=== PATIENT | male | born 1975 ===

== ENCOUNTER 2022-10-23 08:33 | Inpatient (IN) | payer BC ==
[~2022-10-23] VITALS: Ht 182.9 cm; Wt 163.8 kg
[2022-10-23] VITALS (13 sets, daily range): BP systolic 161–200; BP diastolic 90–130
--- NOTE | 2022-10-23 11:26 | NUR ---
PT ARRIVED VIA GURNEY FROM [place]. PT DENIES PAIN. FOOT IS RED WITH WOUND CLEARLY VISIBLE. PT AMBULATORY IN ROOM. HE DENIES ANY HISTORY OF NEUROPATHY BUT IS UNABLE TO FEEL THE WOUND ON FOOT. HE DENIES ANY SHORTNESS OF BREATH. NO CHEST PAIN. BP IN THE 220'S DURING TRANSPORT PER REPORT. 170/116 ON ARRIVAL, PT STATES HE HAS HYPERTENSION BUT DOES NOT TAKE ANYTHING FOR IT. "AVOIDS DOCTORS" IF HE CAN. STATES HE HAS NOT EATEN OR DRANK ANYTHING SINCE YESTERDAY. AGREEABLE TO BE NPO FOR PROCEDURE. SCREENED FOR IGNITION RISK, NO RISK FOUND. EDUCATED ON NO SMOKING IN HOSPITAL.
[2022-10-23 12:53] LABS: BASOPHILS ABSOLUTE AUTO 0.06 K/mm3 (0.00-0.23); BASOPHILS PERCENT AUTO 1 % (0-2); EOSINOPHILS ABSOLUTE AUTO 0.28 K/mm3 (0.00-0.68); EOSINOPHILS PERCENT AUTO 4 % (0-6); Hematocrit 43.4 % (37.0-53.0); Hemoglobin 14.6 g/dL (13.5-17.5); IMMATURE GRAN ABSOLUTE AUTO 0.04 K/mm3 (0.00-0.10); IMMATURE GRAN PERCENT AUTO 1 % (0-1); LYMPHOCYTES ABSOLUTE AUTO 1.73 K/mm3 (0.84-5.20); LYMPHOCYTES PERCENT AUTO 22 % (21-46); MONOCYTES ABSOLUTE AUTO 0.55 K/mm3 (0.16-1.47); MONOCYTES PERCENT AUTO 7 % (4-13); Mean Corpuscular HGB Conc 33.6 g/dL (31.5-36.5); Mean Corpuscular Volume 86 fL (80-100); NEUTROPHILS ABSOLUTE AUTO 5.14 K/mm3 (1.96-9.15); NEUTROPHILS PERCENT AUTO 66 % (41-73); Platelet Count 299 K/mm3 (150-400); RDW Coefficient Variation 13.2 % (11.7-14.2); RDW Standard Deviation 40.7 fL (35.1-46.3); Red Blood Cell Count 5.04 M/mm3 (4.30-5.90)
[2022-10-23 13:53] LABS: Albumin/Globulin Ratio 0.6 (0.8-1.8); Bilirubin, Total 0.6 mg/dL (0.1-1.0); Bun/Creatinine Ratio 6.6 (12.0-20.0); Creatinine, Blood 0.92 mg/dL (0.60-1.20); Globulin, Blood 5.3 g/dL (2.2-4.0); Potassium, Blood 3.6 mmol/L (3.5-5.5); Total Protein, Blood 8.3 g/dL (6.4-8.2)
--- NOTE | 2022-10-23 16:37 | NUR ---
PATIENT TO DAY SURGERY VIA [facility]
--- NOTE | 2022-10-23 16:46 | NUR ---
PT HAS 20G IV TO R HAND THAT FLUSHES WELL AND FLOWS TO GRAVITY. PT ALSO HAS 18G IV TO L FOREARM THAT FLUSHES WELL AND FLOWS TO GRAVITY.
--- NOTE | 2022-10-23 17:05 | NUR ---
CALL TO MD CALL RECEIVED FROM DAY SURGERY RN THAT OATIENTS CASE BEING CANCELLED D/T BLOOD PRESSURE REMIANING HIGH. DAY SURGERY RN REPORTED GIVING HYDRALAZINE PER EMAR AND BP REMAINS 189/118. THIS RN MADE CALL TO DR MON TO UPDATE ON THIS BLOOD PRESSURE FOLLOWING HYDRALAZINE. DR ASH GAVE TELEPHONE ORDERS FOR TELEMETRY AND A ONE TIME DOSE OF IV LABETOLOL 20MG.
--- NOTE | 2022-10-23 19:11 | NUR ---
CALL TO THIS RN NOTIFIED NIGHT RESIDENT DR MONTANO REGARDING PATIENTS BLOOD PRESSURE. UPDATED PHYSICIAN THAT PATIENTS BLOOD PRESSURE IS 174/109 FOLLOWING THE IV LABETOLOL AND NORVASC STARTED PER EMAR. STATED SHE WOULD REVIEW CHART AND ENTER ORDERS ACCORDINGLY. NO NEW ORDERS RECEIVED BY THIS RN.
--- NOTE | 2022-10-23 19:33 | NUR ---
SHIFT SUMMARY PATIENTS SURGERY POST-PONED TODAY D/T HYPERTENSION. SEE PREVIOUS NOTES AND EMAR REGARDING HYPTERNSION - LITTLE TO NO IMPROVEMENT WITH MEDICATIONS PER EMAR. PATIENT ASYMPTOMATIC. INFECTION TO R FOOT, AWAITING I&D, DENIES PAIN, JOANNE. TOLERATING ADA DIET, DENIES N/V. CALLS APPROPRIATELY, IN REACH. REPORT GIVEN TO WERNER MEDINA.
[2022-10-24 00:06] VITALS: BP 170/108
--- NOTE | 2022-10-24 00:12 | NUR ---
BP MANAGEMENT PTS BP FALLS BELOW PARAMETERS AT THIS TIME FOR BP MEDICATION, PLAN TO CONTINUE TO MONITOR AND CALL HOSPITALIST WITH FURTHER CONCERNS
[2022-10-24 04:08] VITALS: BP 188/110
--- NOTE | 2022-10-24 04:25 | NUR ---
SHIFT SUMMARY VSS, PT REMAINS HYPERTENSIVE PER TREND. PT REMAINS ASYMPTOMATIC. TELE READS SR 70. MEDICATED PER EMAR. NO ACUTE EVENTS T/O THE NIGHT. PT TOLLERATING PO INTAKE W/O N/V. LARGE AMOUNTS OF URINE NOTED, PT REPORTS THIS IS BASELINE FOR HIM. AMBULATING INDEPENDENTLY. PT REPORTED NO PAIN T/O THE NIGHT. RIGHT FOOT REMAINS GASOLINE FINISHER, NO DRAINAGE NOTED. SWOLLEN, WARM, AND RED. NO ACUTE EVENTS T/O THE NIGHT. PLAN FOR BP MANAGEMENT AND BLOOD SUAGR MANAGEMENT. FIRE HAZARD RISK ASSESSED AND NO THREATS OR OBJECTS FOUND. THE PATIENT IS CURRENTLY RESTING, IN NO DISTRESS, CALL LIGHT IN REACH
[2022-10-24 05:58] VITALS: BP 176/112
[2022-10-24 07:12] VITALS: BP 161/91
[2022-10-24 15:44] VITALS: BP 169/110
[2022-10-24 15:57] LABS: Vancomycin, Trough 12.6 ug/mL (5.0-10.0)
[2022-10-24 19:09] VITALS: BP 178/112
--- NOTE | 2022-10-24 19:38 | NUR ---
SHIFT SUMMARY S/P RLE CELLULITIS, A/OX4, VSS, TOLERATING PO, INDEPENDENT IN HIS ROOM, DENIES PAIN. NO ACUTE EVENTS THIS SHIFT, UPATED PATIENT ON PLAN OF OR TOMORROW. DISCUSSED INDOOR SMOKING BAN IN [place] OF [place], PT AGREES TO NOT HAVE OR USE IGNITION SOURCES WHILE IN [facility].
[2022-10-25] VITALS (23 sets, daily range): BP systolic 137–174; BP diastolic 78–118
--- NOTE | 2022-10-25 06:42 | NUR ---
BP REMAINS ELEVATED, PT ASYMPTOMATIC. PRN BP MED GIVEN W/MILD IMPROVEMENT. PT REP SENSATION OF RLE AT BASELINE, DENIED PAIN. CAP REFILL WNL. PT NPO POST MIDNIGHT FOR PLAN FOR SURGERY TODAY. IVF ABX CONT PER ORDERS. IGNITIOPNS RISKS ASSESSED, NO HAZZARDS NOTED, PT VERBALIZED UNDERSTANDING OF POLICY.
--- NOTE | 2022-10-25 11:18 | NUR ---
BRADYCARDIA PT HAD AN EPISODE OF BRADYCARDIA WITH HR DOWN TO THE 30'S X15 SECONDS PER [facility]. PT WAS ASYMPTOMATIC AND VSS. DR. MAURICIO NOTIFIED. WILL CONTINUE TO MONITOR.
--- NOTE | 2022-10-25 12:58 | NUR ---
PT TAKEN TO DAY SURGERY BY PITA MEDINA. SHE WAS NOTIFIED THAT PT WILL NEED PRE OP WASH.
--- NOTE | 2022-10-25 13:13 | NUR ---
R FOOT/WOUND CLEANSED WITH SKINTEGRITY. WOUND DRESSED WITH GAUZE, KERLEX AND COURTNEY WRAP.
--- NOTE | 2022-10-25 15:28 | NUR ---
PT ARRIVED TO THE ROOM FROM PACU. DRESSING TO RLE C/D/I. PT DENIES PAIN. FAMILY AT BEDSIDE FOR SUPPORT. CAP REFIL TO RLE WNL.
--- NOTE | 2022-10-25 19:55 | NUR ---
SHIFT SUMMARY PT IS POD#0 FROM R FOOT I&D WITH DR. ROB. BP HAS BEEN ELEVATED BUT MANAGED WITH PO AND IV BP MEDS. PT DENIES PAIN TO THE RIGHT FOOT. FAMILY WAS AT THE BEDSIDE FOR COMFORT/SUPPORT. WILL MONITOR UNTIL REPORT TO WERNER RN.
[2022-10-26 08:24] VITALS: BP 143/96
[2022-10-26 08:37] VITALS: BP 156/89
--- NOTE | 2022-10-26 08:38 | NUR ---
SUMMARY TOLERATING PO.VOIDING.NO C/O PAIN.CIRC CKS INTACT.NO RISKS OF IGNITION NOTED.
[2022-10-26 14:35] VITALS: BP 167/104
[2022-10-26 14:51] LABS: BASOPHILS ABSOLUTE AUTO 0.08 K/mm3 (0.00-0.23); BASOPHILS PERCENT AUTO 1 % (0-2); EOSINOPHILS ABSOLUTE AUTO 0.29 K/mm3 (0.00-0.68); EOSINOPHILS PERCENT AUTO 3 % (0-6); Hematocrit 42.9 % (37.0-53.0); Hemoglobin 14.4 g/dL (13.5-17.5); IMMATURE GRAN ABSOLUTE AUTO 0.04 K/mm3 (0.00-0.10); IMMATURE GRAN PERCENT AUTO 0 % (0-1); LYMPHOCYTES ABSOLUTE AUTO 2.66 K/mm3 (0.84-5.20); LYMPHOCYTES PERCENT AUTO 30 % (21-46); MONOCYTES ABSOLUTE AUTO 0.75 K/mm3 (0.16-1.47); MONOCYTES PERCENT AUTO 8 % (4-13); Mean Corpuscular HGB 29.2 pg (26.0-34.0); Mean Corpuscular HGB Conc 33.6 g/dL (31.5-36.5); Mean Corpuscular Volume 87 fL (80-100); Mean Platelet Volume 8.9 fL (9.1-12.4); NEUTROPHILS ABSOLUTE AUTO 5.21 K/mm3 (1.96-9.15); NEUTROPHILS PERCENT AUTO 58 % (41-73); Platelet Count 312 K/mm3 (150-400); RDW Coefficient Variation 13.4 % (11.7-14.2); RDW Standard Deviation 42.5 fL (35.1-46.3); Red Blood Cell Count 4.93 M/mm3 (4.30-5.90); White Blood Cell Count 9.03 K/mm3 (4.00-11.30)
--- NOTE | 2022-10-26 16:36 | NUR ---
ELEVATED BLOOD GLUCOSE PT HAS HAD BLOOD GLUCOSE GREATER THAN 200 T/O THE DAY. [address] MON NOTIFIED OF CONCERNS. GLARGINE WAS INCREASED BY DR. MAURICIO THIS AM. PLAN TO CONTINUE WITH LOW SLIDING SCALE AT THIS TIME.
[2022-10-26 19:30] VITALS: BP 176/100
--- NOTE | 2022-10-26 20:22 | NUR ---
SHIFT SUMMARY PT IS POD#[address] ROB. PT HAS DENIED PAIN T/O THE SHIFT. HE IS A 1 ASSIST WHEN OOB. PT ASSESSED FOR IGNITION SOURCES THIS AM. REPORT GIVEN TO WERNER MEDINA.
[2022-10-27 03:29] VITALS: BP 162/104
[2022-10-27 04:30] LABS: BASOPHILS ABSOLUTE AUTO 0.09 K/mm3 (0.00-0.23); BASOPHILS PERCENT AUTO 1 % (0-2); EOSINOPHILS ABSOLUTE AUTO 0.37 K/mm3 (0.00-0.68); EOSINOPHILS PERCENT AUTO 4 % (0-6); Hematocrit 43.3 % (37.0-53.0); Hemoglobin 14.5 g/dL (13.5-17.5); IMMATURE GRAN ABSOLUTE AUTO 0.05 K/mm3 (0.00-0.10); IMMATURE GRAN PERCENT AUTO 1 % (0-1); LYMPHOCYTES ABSOLUTE AUTO 2.25 K/mm3 (0.84-5.20); LYMPHOCYTES PERCENT AUTO 27 % (21-46); MONOCYTES ABSOLUTE AUTO 0.74 K/mm3 (0.16-1.47); MONOCYTES PERCENT AUTO 9 % (4-13); Mean Corpuscular HGB 29.1 pg (26.0-34.0); Mean Corpuscular HGB Conc 33.5 g/dL (31.5-36.5); Mean Corpuscular Volume 87 fL (80-100); Mean Platelet Volume 8.8 fL (9.1-12.4); NEUTROPHILS ABSOLUTE AUTO 4.95 K/mm3 (1.96-9.15); NEUTROPHILS PERCENT AUTO 59 % (41-73); Platelet Count 310 K/mm3 (150-400); RDW Coefficient Variation 13.4 % (11.7-14.2); Red Blood Cell Count 4.98 M/mm3 (4.30-5.90); White Blood Cell Count 8.45 K/mm3 (4.00-11.30)
[2022-10-27 04:52] LABS: Albumin/Globulin Ratio 0.6 (0.8-1.8); Bilirubin, Total 0.5 mg/dL (0.1-1.0); Bun/Creatinine Ratio 20.4 (12.0-20.0); Calcium, Blood 9.4 mg/dL (8.5-10.1); Creatinine, Blood 0.88 mg/dL (0.60-1.20); Globulin, Blood 5.1 g/dL (2.2-4.0); Potassium, Blood 4.4 mmol/L (3.5-5.5); Total Protein, Blood 8.1 g/dL (6.4-8.2)
[2022-10-27 07:11] VITALS: BP 165/95
--- NOTE | 2022-10-27 08:41 | NUR ---
SUMMARY PT WITH NEW IV SITE TONIGHT. NO C/O.
[2022-10-27] MEDS ORDERED: AMLO10 PO ×2 (10:05)
[2022-10-27] MEDS ORDERED: CEFTRIAXONE2 G1 IV ×2 (10:06)
[2022-10-27] MEDS ORDERED: Prozac20 MG PO ×2 (10:06)
[2022-10-27] MEDS ORDERED: LOSA50 PO ×2 (10:07)
[2022-10-27] MEDS ORDERED: HYDCHL25 PO ×2 (10:07)
[2022-10-27] MEDS ORDERED: VISBIOME 112.51 EACH PO ×2 (10:08)
--- NOTE | 2022-10-27 10:17 | NUR ---
FIRE SAFETY ASSESSMENT AND EDUCATION DONE, PT DENIES HX OF SMOKING NO IGNITION SOURCES IDENTIFIED, PT DENIES HAVING ANY IGNITION SOURCES IN ROOM.
[2022-10-27 11:15] VITALS: BP 155/101
[2022-10-27 16:12] VITALS: BP 155/98
[2022-10-27] MEDS ORDERED: BASAGLAR K100 UNIT/1 SC ×2 (16:24)
[2022-10-27] MEDS ORDERED: HUMALOG KW100 UNIT/1 SC ×2 (16:26)
--- NOTE | 2022-10-27 16:31 | NUR ---
NOTIFIED BY [employer] THAT PT HAD A BRADYCHARDIC EPISODE EARLY THIS AM, STATES PT'S RATE WAS 39BPM "AROUND [address] DUNN NOTIFIED, NO NEW ORDERS RECEIVED.
--- NOTE | 2022-10-27 17:16 | NUR ---
DC'D HOME, DC INSTRUCTIONS GIVEN TO PT AND , VERBALIZED UNDERSTANDING, PT TO RETURN TO [facility] THIS AND SUNDAY FOR IV ABX, F/U W/ DR. ROB IN 1 WEEK FOR WOUND CARE, PT IS IN THE PROCESS OF OBTAINING A PCP IN [place] PER , PT INSTRUCTIONS GIVEN ON GLUCOMETER USE, CHECKING BLOOD SUGAR AND BLOOD PRESSURE AT HOME, GIVING INSULIN USING INSULIN PENS, S/S OF HYPER/HYPOGLYCEMIA, AND WHEN TO CALL PROVIDER OR TO RETURN TO ED, PT AND VERBALIZED UNDERSTANDING.
--- NOTE | 2022-10-28 14:16 | NUR ---
script for insulin not recieved by pharmacy. called in scripts to [facility] [place] for patient.
== END 2022-10-27 17:18 | disposition home or self-care (01) | DRG 629 ==
LOC: SURS 08:33
PROVIDERS: Family Medicine; Hospitalist; Podiatrist Foot & Ankle Surgery; ADMIT Internal Medicine
PROC: 0Y9M0ZZ Drainage of Right Foot, Open Approach (ICD-10-PCS; 2022-10-25)
PROC: 0QBN0ZZ Excision of Right Metatarsal, Open Approach (ICD-10-PCS; principal; 2022-10-25 13:30)
DX: E11.69 Type 2 diabetes mellitus with other specified complication (principal); E87.1 Hypo-osmolality and hyponatremia; L02.611 Cutaneous abscess of right foot; M86.8X7 Other osteomyelitis, ankle and foot; E11.621 Type 2 diabetes mellitus with foot ulcer; S90.851A Superficial foreign body, right foot, initial encounter; E11.628 Type 2 diabetes mellitus with other skin complications; E88.09 Other disorders of plasma-protein metabolism, not elsewhere classified; L97.519 Non-pressure chronic ulcer of other part of right foot with unspecified severity; I10 Essential (primary) hypertension; F32.A Depression, unspecified; I16.0 Hypertensive urgency; F17.220 Nicotine dependence, chewing tobacco, uncomplicated; X58.XXXA Exposure to other specified factors, initial encounter
CPT/HCPCS: 36415; 36569; 73630; 80053; 80202; 82947; 85025; 85651; 86140; 96365; 96366; 96372; 96375; 96376; 97110; 97116; 97161; 97165; 97530; 97535; A9270; C1751; G0378; J0295; J0360; J0696; J1100; J1650; J1815; J2001; J2405; J2543; J2704; J2765; J3370; J7050; J7120

== ENCOUNTER 2022-10-28 00:06 | Day surgery (SDC) | payer BC ==
[~2022-10-28 00:06] MED LIST: AMLO10 PO; BASAGLAR K100 UNIT/1 SC; CEFTRIAXONE2 G1 IV; HUMALOG KW100 UNIT/1 SC; HYDCHL25 PO; LOSA50 PO; Prozac20 MG PO; VISBIOME 112.51 EACH PO
[2022-10-28 09:08] VITALS: BP 172/108
== END 2022-10-28 09:42 | disposition home or self-care (01) ==
LOC: ATC 00:06
DX: E11.69 Type 2 diabetes mellitus with other specified complication (principal); M86.9 Osteomyelitis, unspecified; I12.9 Hypertensive chronic kidney disease with stage 1 through stage 4 chronic kidney disease, or unspecified chronic kidney disease; L02.611 Cutaneous abscess of right foot; Z72.0 Tobacco use
CPT/HCPCS: 96365; J0696

== ENCOUNTER 2022-10-29 02:21 | Day surgery (SDC) | payer BC ==
[2022-10-29 08:13] VITALS: BP 155/96
== END 2022-10-29 08:32 | disposition home or self-care (01) ==
LOC: ATC 02:21
DX: E11.69 Type 2 diabetes mellitus with other specified complication (principal); M86.9 Osteomyelitis, unspecified; I10 Essential (primary) hypertension
CPT/HCPCS: 96365; J0696

== ENCOUNTER 2022-10-30 00:08 | Day surgery (SDC) | payer BC ==
[2022-10-30 09:33] VITALS: BP 164/107
== END 2022-10-30 09:56 | disposition home or self-care (01) ==
LOC: ATC 00:08
DX: E11.69 Type 2 diabetes mellitus with other specified complication (principal); M86.9 Osteomyelitis, unspecified; L02.611 Cutaneous abscess of right foot; I10 Essential (primary) hypertension; Z72.0 Tobacco use
CPT/HCPCS: J0696